=== PATIENT | male | born 1980 | race Caucasian/White ===

== ENCOUNTER 2020-06-20 12:48 | Emergency (ER) | payer SELFPAY ==
[~2020-06-20] VITALS: Ht 165.1 cm; Wt 63.6 kg
[2020-06-20 12:58] VITALS: Ht 165.1 cm; Wt 63.6 kg
[2020-06-20] MEDS ORDERED: BACLOFEN10 MG PO (14:22)
[2020-06-20] MEDS ORDERED: MEDROL DOSE PACK4 MG PO (14:22)
[2020-06-20] MEDS ORDERED: DICLOFENAC SODI50 MG PO (14:22)
[2020-06-20 14:24] LABS: BILIRUBIN NEGATIVE (NEGATIVE); KETONE NEGATIVE (NEGATIVE); NITRITE NEGATIVE (NEGATIVE); UROBILINOGEN NORMAL mg/dL (< 2)
[2020-06-20 15:21] VITALS: BP 116/76
== END 2020-06-20 15:22 | disposition home or self-care (01) ==
LOC: D.ER 12:48
PROVIDERS: Family Medicine
DX: M54.16 Radiculopathy, lumbar region (principal)